=== PATIENT | female | born 1935 | race Caucasian/White ===

== ENCOUNTER 2019-07-20 15:24 | Inpatient (IN) | payer MEDICARE, OTHER ==
[~2019-07-20] VITALS: Ht 165.1 cm; Wt 67.6 kg
[2019-07-20] MEDS ORDERED: Z GUARD REMEDY PASTE 57 GM TUBE TOP PRN (15:45)
[2019-07-20] MEDS ORDERED: CLON0.5T4 PO (18:27)
[2019-07-20] MEDS ORDERED: TRAM50TA PO (18:27)
[2019-07-20] MEDS ORDERED: OLME1TAB34 PO (18:27)
[2019-07-20] MEDS ORDERED: CLON0.1T PO (18:27)
[2019-07-20] MEDS ORDERED: OMEP20TA5 PO (18:27)
[2019-07-20] MEDS ORDERED: TOLT2CAP PO (18:27)
[2019-07-20] MEDS ORDERED: RANI300C PO (18:27)
[2019-07-20] MEDS ORDERED: LOSA100T3 PO (18:27)
[2019-07-20] MEDS ORDERED: GLIP5TAB13 PO (18:27)
[2019-07-20] MEDS ORDERED: ROSU5TAB PO (18:27)
[2019-07-20] MEDS ORDERED: MECL-102 PO (18:27)
[2019-07-20] MEDS ORDERED: LEVO25TA9 PO (18:27)
[2019-07-20] MEDS ORDERED: ESCI10TA PO (18:27)
[2019-07-20] MEDS ORDERED: METO37.5 PO (18:27)
[2019-07-20 18:57] VITALS: BP 158/72
[2019-07-20] MEDS ORDERED: TRAMADOL HCL 50 MG TABLET PO PRN (19:15)
[2019-07-20 20:00] VITALS: BP 157/77
[2019-07-20] MEDS: METOPROLOL TARTRATE 50 MG TABLET PO SCH (20:33)
[2019-07-20] MEDS: CLONAZEPAM 0.5 MG TABLET PO SCH (20:33)
[2019-07-20] MEDS: LOSARTAN POTASSIUM 50 MG TABLET PO SCH (20:33)
[2019-07-20] MEDS: OXYCODONE/APAP 5-325 MG TABLET PO PRN (20:35)
[2019-07-21] MEDS: LEVOTHYROXINE SODIUM 25 MCG TABLET PO SCH (06:02)
[2019-07-21 06:30] VITALS: BP 126/51
[2019-07-21 07:07] LABS: BASOPHILS % (AUTO) 0.6 % (0.0-2.0); EOSINOPHILS # (AUTO) 0.2 K/uL (0.0-0.7); EOSINOPHILS % (AUTO) 3.8 % (0.0-7.0); HEMATOCRIT 33.6 % (31.2-41.9); HEMOGLOBIN 11.2 g/dL (10.9-14.3); LYMPHOCYTES # (AUTO) 1.5 K/uL (20.0-40.0); LYMPHOCYTES % (AUTO) 29.5 % (20.5-51.5); MEAN CORPUSCULAR HGB CONC 34 g/dL (32.3-35.6); MEAN CORPUSCULAR VOLUME 92.4 fL (75.5-95.3); MONOCYTES # (AUTO) 0.6 K/uL (2.0-10.0); MONOCYTES % (AUTO) 11.9 % (0.0-11.0); NEUTROPHILS # (AUTO) 2.8 K/uL (1.8-8.9); NEUTROPHILS % (AUTO) 54.2 % (38.5-71.5); PLATELET COUNT (AUTO) 147 K/uL (179-408); RED BLOOD CELL COUNT(AUTO) 3.63 MIL/uL (3.63-4.92); WHITE BLOOD COUNT (AUTO) 5.1 K/uL (3.8-11.8)
[2019-07-21] MEDS: TOLTERODINE LA 2 MG CAP.SR.24H PO SCH (08:02)
[2019-07-21] MEDS: glipiZIDE 5 MG TABLET PO SCH ×2 (08:02→16:41)
[2019-07-21 08:04] LABS: THYROID STIMULATING HORMONE 3.409 mIU/mL (0.358-3.740)
[2019-07-21] MEDS: LOSARTAN POTASSIUM 50 MG TABLET PO SCH ×2 (08:05→21:11)
[2019-07-21] MEDS: ESCITALOPRAM OXALATE 10 MG TABLET PO SCH (08:05)
[2019-07-21] MEDS: OXYCODONE/APAP 5-325 MG TABLET PO PRN ×4 (08:06→21:11)
[2019-07-21 08:27] LABS: BILIRUBIN,TOTAL 0.4 mg/dL (0.2-1.0); CREATININE 0.9 mg/dL (0.6-1.3); MAGNESIUM 1.7 mg/dL (1.8-2.4); PHOSPHOROUS 3.7 mg/dL (2.5-4.9); POTASSIUM 3.6 mmol/L (3.5-5.1); TOTAL PROTEIN, SERUM 6.5 g/dL (6.4-8.2)
[2019-07-21] MEDS ORDERED: DEXTROSE 50% 50 ML DISP.SYRIN IV PRN (10:15)
[2019-07-21] MEDS: METOPROLOL TARTRATE 50 MG TABLET PO SCH ×2 (10:58→21:10)
[2019-07-21] MEDS: METFORMIN HCL 500 MG TABLET PO SCH ×2 (10:59→17:11)
[2019-07-21] MEDS: CYANOCOBALAMIN 1000 MCG/ML VIAL IM SCH (10:59)
[2019-07-21] MEDS ORDERED: MAGNESIUM OXIDE 400 MG TABLET PO ONE (11:00)
[2019-07-21] MEDS: BLOOD SUGAR DIAGNOSTIC 1 EACH STRIP VI SCH ×3 (11:41→21:10)
[2019-07-21 20:10] VITALS: BP 128/55
[2019-07-21] MEDS: CLONAZEPAM 0.5 MG TABLET PO SCH (21:11)
[2019-07-22] MEDS: BLOOD SUGAR DIAGNOSTIC 1 EACH STRIP VI SCH ×4 (06:34→20:20)
[2019-07-22] MEDS: LEVOTHYROXINE SODIUM 25 MCG TABLET PO SCH (06:35)
[2019-07-22 06:38] VITALS: BP 146/52
[2019-07-22 08:20] VITALS: BP 136/57
[2019-07-22] MEDS: METFORMIN HCL 500 MG TABLET PO SCH ×2 (08:25→17:38)
[2019-07-22] MEDS: METOPROLOL TARTRATE 50 MG TABLET PO SCH ×2 (08:26→20:20)
[2019-07-22] MEDS: LOSARTAN POTASSIUM 50 MG TABLET PO SCH ×2 (08:26→20:20)
[2019-07-22] MEDS: CYANOCOBALAMIN 1000 MCG/ML VIAL IM SCH (08:26)
[2019-07-22] MEDS: ESCITALOPRAM OXALATE 10 MG TABLET PO SCH (08:26)
[2019-07-22] MEDS: TOLTERODINE LA 2 MG CAP.SR.24H PO SCH (08:27)
[2019-07-22] MEDS: glipiZIDE 5 MG TABLET PO SCH ×2 (08:27→17:38)
[2019-07-22] MEDS: OXYCODONE/APAP 5-325 MG TABLET PO PRN (11:37)
[2019-07-22] MEDS: INSULIN REGULAR, HUMAN 300 UNIT/3 ML VIAL SQ PRN (11:41)
[2019-07-22 17:00] VITALS: BP 142/59
[2019-07-22 19:50] VITALS: BP 152/62
[2019-07-22] MEDS: CLONAZEPAM 0.5 MG TABLET PO SCH (20:20)
[2019-07-23] MEDS: OXYCODONE/APAP 5-325 MG TABLET PO PRN ×3 (00:35→20:17)
[2019-07-23 05:58] VITALS: BP 141/56
[2019-07-23] MEDS: LEVOTHYROXINE SODIUM 25 MCG TABLET PO SCH (06:25)
[2019-07-23] MEDS: BLOOD SUGAR DIAGNOSTIC 1 EACH STRIP VI SCH ×4 (06:32→20:17)
[2019-07-23 08:00] VITALS: BP 158/62
[2019-07-23] MEDS: INSULIN REGULAR, HUMAN 300 UNIT/3 ML VIAL SQ PRN ×3 (08:22→20:19)
[2019-07-23] MEDS: glipiZIDE 5 MG TABLET PO SCH ×2 (08:25→17:22)
[2019-07-23] MEDS: METOPROLOL TARTRATE 50 MG TABLET PO SCH ×2 (08:25→20:16)
[2019-07-23] MEDS: LOSARTAN POTASSIUM 50 MG TABLET PO SCH ×2 (08:26→20:16)
[2019-07-23] MEDS: TOLTERODINE LA 2 MG CAP.SR.24H PO SCH (08:26)
[2019-07-23] MEDS: ESCITALOPRAM OXALATE 10 MG TABLET PO SCH (08:26)
[2019-07-23] MEDS: CYANOCOBALAMIN 1000 MCG/ML VIAL IM SCH (08:27)
[2019-07-23] MEDS: METFORMIN HCL 500 MG TABLET PO SCH ×2 (08:29→18:11)
[2019-07-23] MEDS ORDERED: MIRALAX 17 GM POWD.PACK PO PRN (10:00)
[2019-07-23] MEDS: DOCUSATE SODIUM 100 MG CAPSULE PO SCH ×2 (10:22→17:22)
[2019-07-23 17:00] VITALS: BP 156/67
[2019-07-23 19:55] VITALS: BP 151/74
[2019-07-23] MEDS: CLONAZEPAM 0.5 MG TABLET PO SCH (20:15)
[2019-07-24 06:00] VITALS: BP 169/70
[2019-07-24] MEDS: LEVOTHYROXINE SODIUM 25 MCG TABLET PO SCH (06:02)
[2019-07-24] MEDS: LOSARTAN POTASSIUM 50 MG TABLET PO SCH ×2 (06:03→20:00)
[2019-07-24] MEDS: BLOOD SUGAR DIAGNOSTIC 1 EACH STRIP VI SCH ×4 (06:38→20:00)
[2019-07-24 08:00] VITALS: BP 169/61
[2019-07-24] MEDS: METFORMIN HCL 500 MG TABLET PO SCH ×2 (08:23→18:02)
[2019-07-24] MEDS: glipiZIDE 5 MG TABLET PO SCH ×2 (08:25→17:16)
[2019-07-24] MEDS: ESCITALOPRAM OXALATE 10 MG TABLET PO SCH (08:25)
[2019-07-24] MEDS: INSULIN REGULAR, HUMAN 300 UNIT/3 ML VIAL SQ PRN ×3 (08:25→20:01)
[2019-07-24] MEDS: DOCUSATE SODIUM 100 MG CAPSULE PO SCH ×2 (08:25→17:16)
[2019-07-24] MEDS: METOPROLOL TARTRATE 50 MG TABLET PO SCH ×2 (08:26→20:00)
[2019-07-24] MEDS: TOLTERODINE LA 2 MG CAP.SR.24H PO SCH (08:26)
[2019-07-24] MEDS: CYANOCOBALAMIN 1000 MCG/ML VIAL IM SCH (08:26)
[2019-07-24] MEDS: OXYCODONE/APAP 5-325 MG TABLET PO PRN ×2 (08:37→14:48)
[2019-07-24] MEDS ORDERED: hydrALAZINE HCL 25 MG TABLET PO PRN (10:00)
[2019-07-24 17:00] VITALS: BP 148/65
[2019-07-24] MEDS: ACETAMINOPHEN ES 500 MG TABLET PO SCH ×2 (17:16→23:25)
[2019-07-24 19:43] VITALS: BP 137/67
[2019-07-24] MEDS: CLONAZEPAM 0.5 MG TABLET PO SCH (20:00)
[2019-07-24] MEDS: IBUPROFEN 200 MG TABLET PO SCH (21:18)
[2019-07-25] MEDS: IBUPROFEN 200 MG TABLET PO SCH ×3 (05:27→22:00)
[2019-07-25] MEDS: ACETAMINOPHEN ES 500 MG TABLET PO SCH ×3 (05:27→17:07)
[2019-07-25 05:28] VITALS: BP 146/64
[2019-07-25] MEDS: LEVOTHYROXINE SODIUM 25 MCG TABLET PO SCH (06:27)
[2019-07-25] MEDS: BLOOD SUGAR DIAGNOSTIC 1 EACH STRIP VI SCH ×4 (06:32→20:54)
[2019-07-25] MEDS: METFORMIN HCL 500 MG TABLET PO SCH ×2 (08:30→17:07)
[2019-07-25] MEDS: glipiZIDE 5 MG TABLET PO SCH ×2 (08:30→17:07)
[2019-07-25] MEDS: DOCUSATE SODIUM 100 MG CAPSULE PO SCH ×2 (08:30→17:07)
[2019-07-25] MEDS: TOLTERODINE LA 2 MG CAP.SR.24H PO SCH (08:30)
[2019-07-25] MEDS: CYANOCOBALAMIN 1000 MCG/ML VIAL IM SCH (08:30)
[2019-07-25] MEDS: ESCITALOPRAM OXALATE 10 MG TABLET PO SCH (08:30)
[2019-07-25] MEDS: LOSARTAN POTASSIUM 50 MG TABLET PO SCH ×2 (08:37→20:41)
[2019-07-25] MEDS: METOPROLOL TARTRATE 50 MG TABLET PO SCH ×2 (08:37→20:41)
[2019-07-25] MEDS: OXYCODONE/APAP 5-325 MG TABLET PO PRN ×2 (08:37→17:07)
[2019-07-25 09:00] VITALS: BP 125/63
[2019-07-25 09:00] LABS: CREATININE 0.9 mg/dL (0.6-1.3)
[2019-07-25 19:08] VITALS: BP 123/56
[2019-07-25 19:48] VITALS: BP 155/58
[2019-07-25] MEDS: CLONAZEPAM 0.5 MG TABLET PO SCH (20:41)
[2019-07-26 04:55] VITALS: BP 145/75
[2019-07-26] MEDS: ACETAMINOPHEN ES 500 MG TABLET PO SCH ×4 (06:00→18:00)
[2019-07-26] MEDS: IBUPROFEN 200 MG TABLET PO SCH ×3 (06:43→22:00)
[2019-07-26] MEDS: LEVOTHYROXINE SODIUM 25 MCG TABLET PO SCH (06:43)
[2019-07-26] MEDS: BLOOD SUGAR DIAGNOSTIC 1 EACH STRIP VI SCH ×4 (06:44→22:00)
[2019-07-26 07:58] VITALS: BP 159/47
[2019-07-26] MEDS: DOCUSATE SODIUM 100 MG CAPSULE PO SCH ×2 (08:40→17:00)
[2019-07-26] MEDS: METFORMIN HCL 500 MG TABLET PO SCH ×2 (08:40→18:00)
[2019-07-26] MEDS: ESCITALOPRAM OXALATE 10 MG TABLET PO SCH (08:41)
[2019-07-26] MEDS: CYANOCOBALAMIN 1000 MCG/ML VIAL IM SCH (08:41)
[2019-07-26] MEDS: LOSARTAN POTASSIUM 50 MG TABLET PO SCH ×2 (08:41→22:00)
[2019-07-26] MEDS: TOLTERODINE LA 2 MG CAP.SR.24H PO SCH (08:41)
[2019-07-26] MEDS: METOPROLOL TARTRATE 50 MG TABLET PO SCH ×2 (08:41→22:00)
[2019-07-26] MEDS: glipiZIDE 5 MG TABLET PO SCH ×2 (08:41→17:00)
[2019-07-26 16:00] VITALS: BP 146/68
[2019-07-26 20:21] VITALS: BP 142/75
[2019-07-26] MEDS: CLONAZEPAM 0.5 MG TABLET PO SCH (22:00)
[2019-07-27 05:10] VITALS: BP 155/68
[2019-07-27] MEDS: IBUPROFEN 200 MG TABLET PO SCH ×3 (06:00→21:53)
[2019-07-27] MEDS: ACETAMINOPHEN ES 500 MG TABLET PO SCH ×5 (06:41→23:31)
[2019-07-27] MEDS: BLOOD SUGAR DIAGNOSTIC 1 EACH STRIP VI SCH ×4 (06:43→20:21)
[2019-07-27] MEDS: LEVOTHYROXINE SODIUM 25 MCG TABLET PO SCH (06:43)
[2019-07-27] MEDS: CYANOCOBALAMIN 1000 MCG/ML VIAL IM SCH (08:13)
[2019-07-27] MEDS: METOPROLOL TARTRATE 50 MG TABLET PO SCH ×2 (08:13→20:16)
[2019-07-27] MEDS: DOCUSATE SODIUM 100 MG CAPSULE PO SCH ×2 (08:13→17:00)
[2019-07-27] MEDS: METFORMIN HCL 500 MG TABLET PO SCH ×2 (08:13→17:02)
[2019-07-27] MEDS: LOSARTAN POTASSIUM 50 MG TABLET PO SCH ×2 (08:13→20:16)
[2019-07-27] MEDS: ESCITALOPRAM OXALATE 10 MG TABLET PO SCH (08:13)
[2019-07-27] MEDS: TOLTERODINE LA 2 MG CAP.SR.24H PO SCH (08:14)
[2019-07-27] MEDS: glipiZIDE 5 MG TABLET PO SCH ×2 (08:14→17:00)
[2019-07-27 09:06] VITALS: BP 160/53
[2019-07-27 20:13] VITALS: BP 136/57
[2019-07-27] MEDS: CLONAZEPAM 0.5 MG TABLET PO SCH (20:16)
[2019-07-27] MEDS: INSULIN REGULAR, HUMAN 300 UNIT/3 ML VIAL SQ PRN (20:22)
[2019-07-28 05:21] VITALS: BP 133/60
[2019-07-28] MEDS: IBUPROFEN 200 MG TABLET PO SCH ×3 (06:20→21:17)
[2019-07-28] MEDS: LEVOTHYROXINE SODIUM 25 MCG TABLET PO SCH (06:20)
[2019-07-28] MEDS: ACETAMINOPHEN ES 500 MG TABLET PO SCH ×3 (06:20→17:35)
[2019-07-28] MEDS: BLOOD SUGAR DIAGNOSTIC 1 EACH STRIP VI SCH ×4 (06:32→20:05)
[2019-07-28 07:41] VITALS: BP 140/51
[2019-07-28] MEDS: METFORMIN HCL 500 MG TABLET PO SCH ×2 (08:26→17:35)
[2019-07-28] MEDS: METOPROLOL TARTRATE 50 MG TABLET PO SCH ×2 (09:00→20:03)
[2019-07-28] MEDS: ESCITALOPRAM OXALATE 10 MG TABLET PO SCH (09:06)
[2019-07-28] MEDS: DOCUSATE SODIUM 100 MG CAPSULE PO SCH ×2 (09:06→17:35)
[2019-07-28] MEDS: OXYCODONE/APAP 5-325 MG TABLET PO PRN (09:07)
[2019-07-28] MEDS: LOSARTAN POTASSIUM 50 MG TABLET PO SCH ×2 (09:08→20:04)
[2019-07-28] MEDS: TOLTERODINE LA 2 MG CAP.SR.24H PO SCH (09:11)
[2019-07-28] MEDS: glipiZIDE 5 MG TABLET PO SCH ×2 (09:11→17:35)
[2019-07-28 14:56] VITALS: BP 111/60
[2019-07-28] MEDS: CLONAZEPAM 0.5 MG TABLET PO SCH (20:03)
[2019-07-28] MEDS: INSULIN REGULAR, HUMAN 300 UNIT/3 ML VIAL SQ PRN (20:05)
[2019-07-28 20:39] VITALS: BP 142/73
[2019-07-29 04:00] VITALS: BP 125/67
[2019-07-29] MEDS: ACETAMINOPHEN ES 500 MG TABLET PO SCH ×4 (06:09→17:31)
[2019-07-29] MEDS: IBUPROFEN 200 MG TABLET PO SCH ×3 (06:09→21:00)
[2019-07-29] MEDS: LEVOTHYROXINE SODIUM 25 MCG TABLET PO SCH (06:09)
[2019-07-29] MEDS: BLOOD SUGAR DIAGNOSTIC 1 EACH STRIP VI SCH ×2 (06:31→11:39)
[2019-07-29 07:39] VITALS: BP 159/73
[2019-07-29] MEDS: METFORMIN HCL 500 MG TABLET PO SCH ×2 (08:38→17:31)
[2019-07-29] MEDS: glipiZIDE 5 MG TABLET PO SCH ×2 (09:16→17:31)
[2019-07-29] MEDS: ESCITALOPRAM OXALATE 10 MG TABLET PO SCH (09:16)
[2019-07-29] MEDS: METOPROLOL TARTRATE 50 MG TABLET PO SCH ×2 (09:16→21:00)
[2019-07-29] MEDS: TOLTERODINE LA 2 MG CAP.SR.24H PO SCH (09:16)
[2019-07-29] MEDS: DOCUSATE SODIUM 100 MG CAPSULE PO SCH ×2 (09:16→17:30)
[2019-07-29] MEDS: LOSARTAN POTASSIUM 50 MG TABLET PO SCH ×2 (09:17→20:59)
[2019-07-29] MEDS: OXYCODONE/APAP 5-325 MG TABLET PO PRN (09:22)
[2019-07-29 14:48] VITALS: BP 113/59
[2019-07-29] MEDS: CLONAZEPAM 0.5 MG TABLET PO SCH (21:00)
[2019-07-29 21:30] VITALS: BP 150/96
[2019-07-30 05:24] VITALS: BP 135/76
[2019-07-30] MEDS: IBUPROFEN 200 MG TABLET PO SCH ×3 (06:00→22:00)
[2019-07-30] MEDS: ACETAMINOPHEN ES 500 MG TABLET PO SCH ×4 (06:00→17:18)
[2019-07-30] MEDS: LEVOTHYROXINE SODIUM 25 MCG TABLET PO SCH (06:38)
[2019-07-30 07:30] VITALS: BP 156/67
[2019-07-30] MEDS: TOLTERODINE LA 2 MG CAP.SR.24H PO SCH (08:36)
[2019-07-30] MEDS: glipiZIDE 5 MG TABLET PO SCH ×2 (08:36→17:18)
[2019-07-30] MEDS: LOSARTAN POTASSIUM 50 MG TABLET PO SCH ×2 (08:37→20:12)
[2019-07-30] MEDS: METOPROLOL TARTRATE 50 MG TABLET PO SCH ×2 (08:37→20:13)
[2019-07-30] MEDS: METFORMIN HCL 500 MG TABLET PO SCH ×2 (08:37→17:18)
[2019-07-30] MEDS: DOCUSATE SODIUM 100 MG CAPSULE PO SCH ×2 (08:37→17:18)
[2019-07-30] MEDS: ESCITALOPRAM OXALATE 10 MG TABLET PO SCH (08:37)
[2019-07-30] MEDS: OXYCODONE/APAP 5-325 MG TABLET PO PRN (08:43)
[2019-07-30 15:27] VITALS: BP 120/58
[2019-07-30 19:50] VITALS: BP 139/60
[2019-07-30] MEDS: CLONAZEPAM 0.5 MG TABLET PO SCH (20:12)
[2019-07-31 05:36] VITALS: BP 148/63
[2019-07-31] MEDS: IBUPROFEN 200 MG TABLET PO SCH ×3 (06:00→21:57)
[2019-07-31] MEDS: ACETAMINOPHEN ES 500 MG TABLET PO SCH ×4 (06:00→17:19)
[2019-07-31] MEDS: LEVOTHYROXINE SODIUM 25 MCG TABLET PO SCH (06:37)
[2019-07-31 07:41] VITALS: BP 143/60
[2019-07-31 08:08] LABS: BASOPHILS # (AUTO) 0.1 K/uL (0.0-8.0); EOSINOPHILS # (AUTO) 0.2 K/uL (0.0-0.7); EOSINOPHILS % (AUTO) 3.1 % (0.0-7.0); HEMATOCRIT 33.5 % (31.2-41.9); HEMOGLOBIN 11.4 g/dL (10.9-14.3); LYMPHOCYTES # (AUTO) 2.1 K/uL (20.0-40.0); LYMPHOCYTES % (AUTO) 34.9 % (20.5-51.5); MEAN CORPUSCULAR HEMOGLOBIN 31.6 uug (24.7-32.8); MEAN CORPUSCULAR HGB CONC 34 g/dL (32.3-35.6); MONOCYTES # (AUTO) 0.6 K/uL (2.0-10.0); MONOCYTES % (AUTO) 10.2 % (0.0-11.0); NEUTROPHILS % (AUTO) 50.8 % (38.5-71.5); RED BLOOD CELL COUNT(AUTO) 3.61 MIL/uL (3.63-4.92)
[2019-07-31 08:24] LABS: BILIRUBIN,TOTAL 0.4 mg/dL (0.2-1.0); CREATININE 0.7 mg/dL (0.6-1.3); MAGNESIUM 1.6 mg/dL (1.8-2.4); POTASSIUM 3.9 mmol/L (3.5-5.1); TOTAL PROTEIN, SERUM 6.8 g/dL (6.4-8.2)
[2019-07-31] MEDS: glipiZIDE 5 MG TABLET PO SCH ×2 (08:29→17:19)
[2019-07-31] MEDS: TOLTERODINE LA 2 MG CAP.SR.24H PO SCH (08:29)
[2019-07-31] MEDS: METFORMIN HCL 500 MG TABLET PO SCH ×2 (08:29→17:19)
[2019-07-31] MEDS: DOCUSATE SODIUM 100 MG CAPSULE PO SCH ×2 (08:29→17:19)
[2019-07-31] MEDS: ESCITALOPRAM OXALATE 10 MG TABLET PO SCH (08:29)
[2019-07-31] MEDS: LOSARTAN POTASSIUM 50 MG TABLET PO SCH ×2 (08:30→20:41)
[2019-07-31] MEDS: METOPROLOL TARTRATE 50 MG TABLET PO SCH ×2 (08:30→21:57)
[2019-07-31 08:47] LABS: PLATELET COUNT (AUTO) 211 K/uL (179-408)
[2019-07-31 10:05] LABS: EOSINOPHILS % (MANUAL) 2 % (0-8); LYMPHOCYTES % (MANUAL) 35 % (20-40); MONOCYTES % (MANUAL) 14 % (2-10)
[2019-07-31 10:07] LABS: NEUTROPHILS % (MANUAL) 49 % (42-75)
[2019-07-31] MEDS ORDERED: MAGNESIUM OXIDE 400 MG TABLET PO ONE (14:30)
[2019-07-31 14:57] VITALS: BP 124/53
[2019-07-31 19:39] VITALS: BP 97/58
[2019-07-31] MEDS: CLONAZEPAM 0.5 MG TABLET PO SCH (20:40)
[2019-08-01 05:40] VITALS: BP 134/57
[2019-08-01] MEDS: ACETAMINOPHEN ES 500 MG TABLET PO SCH ×5 (05:40→17:15)
[2019-08-01] MEDS: IBUPROFEN 200 MG TABLET PO SCH ×3 (05:40→22:00)
[2019-08-01] MEDS: LEVOTHYROXINE SODIUM 25 MCG TABLET PO SCH (06:02)
[2019-08-01 08:00] VITALS: BP 156/77
[2019-08-01] MEDS: METFORMIN HCL 500 MG TABLET PO SCH ×2 (08:38→17:15)
[2019-08-01] MEDS: DOCUSATE SODIUM 100 MG CAPSULE PO SCH ×2 (08:38→16:54)
[2019-08-01] MEDS: TOLTERODINE LA 2 MG CAP.SR.24H PO SCH (08:39)
[2019-08-01] MEDS: LOSARTAN POTASSIUM 50 MG TABLET PO SCH ×2 (08:39→20:34)
[2019-08-01] MEDS: ESCITALOPRAM OXALATE 10 MG TABLET PO SCH (08:40)
[2019-08-01] MEDS: glipiZIDE 5 MG TABLET PO SCH ×2 (08:40→16:54)
[2019-08-01] MEDS: METOPROLOL TARTRATE 50 MG TABLET PO SCH ×2 (08:41→20:34)
[2019-08-01 15:53] VITALS: BP 155/77
[2019-08-01 16:00] VITALS: BP 155/77
[2019-08-01 19:47] VITALS: BP 141/61
[2019-08-01] MEDS: CLONAZEPAM 0.5 MG TABLET PO SCH (20:33)
[2019-08-02 05:38] VITALS: BP 143/63
[2019-08-02] MEDS: ACETAMINOPHEN ES 500 MG TABLET PO SCH ×3 (06:05→12:07)
[2019-08-02] MEDS: IBUPROFEN 200 MG TABLET PO SCH ×2 (06:05→14:00)
[2019-08-02] MEDS: LEVOTHYROXINE SODIUM 25 MCG TABLET PO SCH (06:05)
[2019-08-02 08:01] VITALS: BP 156/64
[2019-08-02] MEDS: METFORMIN HCL 500 MG TABLET PO SCH (09:50)
[2019-08-02] MEDS: DOCUSATE SODIUM 100 MG CAPSULE PO SCH (09:50)
[2019-08-02 09:51] VITALS: BP 156/64
[2019-08-02] MEDS: LOSARTAN POTASSIUM 50 MG TABLET PO SCH (09:51)
[2019-08-02] MEDS: TOLTERODINE LA 2 MG CAP.SR.24H PO SCH (09:51)
[2019-08-02] MEDS: glipiZIDE 5 MG TABLET PO SCH (09:51)
[2019-08-02] MEDS: METOPROLOL TARTRATE 50 MG TABLET PO SCH (09:51)
[2019-08-02] MEDS: ESCITALOPRAM OXALATE 10 MG TABLET PO SCH (09:51)
== END 2019-08-02 15:27 | disposition home health service (06) | DRG 561 ==
PROVIDERS: ADMIT Physical Medicine & Rehabilitation Pain Medicine; ATTEND Physical Medicine & Rehabilitation Pain Medicine
DX: S22.31XD Fracture of one rib, right side, subsequent encounter for fracture with routine healing (principal); S32.591D Other specified fracture of right pubis, subsequent encounter for fracture with routine healing; S32.491D Other specified fracture of right acetabulum, subsequent encounter for fracture with routine healing; S32.391D Other fracture of right ilium, subsequent encounter for fracture with routine healing; W19.XXXD Unspecified fall, subsequent encounter; R53.1 Weakness; E03.9 Hypothyroidism, unspecified; E11.65 Type 2 diabetes mellitus with hyperglycemia; M16.11 Unilateral primary osteoarthritis, right hip; N32.81 Overactive bladder; I10 Essential (primary) hypertension; Z86.73 Personal history of transient ischemic attack (TIA), and cerebral infarction without residual deficits; Z90.49 Acquired absence of other specified parts of digestive tract; K21.9 Gastro-esophageal reflux disease without esophagitis; Z91.81 History of falling; R29.6 Repeated falls; M77.32 Calcaneal spur, left foot; M77.31 Calcaneal spur, right foot; M81.0 Age-related osteoporosis without current pathological fracture; E83.42 Hypomagnesemia; Z87.81 Personal history of (healed) traumatic fracture; R26.81 Unsteadiness on feet; E11.40 Type 2 diabetes mellitus with diabetic neuropathy, unspecified
CPT/HCPCS: 36415; 70030-TC; 73610; 73630; 73721; 82652; 83550; 83735; 84100; 84443; 85025; A9150; J1815; J3420